=== PATIENT | male | born 2000 | race African-American/Black ===

== ENCOUNTER 2021-05-01 19:56 | Emergency (ER) | payer OTHER ==
[2021-05-01 20:59] LABS: HCT 45.8 % (42.0-52.0); HGB 15.3 g/dl (13.2-18.0); MCH 26.2 pg (25.0-31.0); MCHC 33.4 g/dL (32.0-36.0); MCV 78.6 fL (78.0-100.0); MPV 9.1 fL (6.0-9.5); RBC 5.83 M/uL (4.70-6.00); RDW 13.7 % (11.5-14.0); WBC 13.7 K/uL (4.0-10.5)
[2021-05-01 21:19] LABS: ALBUMIN 4.3 g/dL (3.4-5.0); BUN/CREAT RATIO (CALC) 15.7 RATIO; CREATININE 0.83 mg/dL (0.67-1.17); GLOBULIN (CALCULATION) 3.8 g/dL; POTASSIUM 3.9 mmol/L (3.5-5.1); TOTAL PROTEIN 8.1 g/dL (6.4-8.2)
[2021-05-02] MEDS ORDERED: VENTOLIN HFA18 GM INH (01:14)
== END 2021-05-02 01:20 | disposition home or self-care (01) ==
LOC: FER 19:56
PROVIDERS: Emergency Medicine
DX: R07.89 Other chest pain (principal); Z20.822 Contact with and (suspected) exposure to COVID-19; Z87.09 Personal history of other diseases of the respiratory system
CPT/HCPCS: 36415; 71045; 80053; 83690; 85379; 93005; 94640; 94664; J1100; U0002